=== PATIENT | female | born 1990 | race Caucasian/White ===

== ENCOUNTER 2016-07-08 14:58 | Emergency (ER) | payer BC ==
[~2016-07-08] VITALS: Ht 149.9 cm; Wt 63.5 kg
[~2016-07-08 14:58] MED LIST: FIORICET PO; IBUP800T25 PO
[2016-07-08 15:13] VITALS: Ht 149.9 cm; Wt 63.5 kg
[2016-07-08] MEDS ORDERED: LIDOCAINE/MYLANTA 40 ML BTL PO STA (16:42)
[2016-07-08] MEDS ORDERED: morphine 4 MG/ML VIAL IV STA (16:42)
[2016-07-08] MEDS ORDERED: ONDANSETRON 4 MG INJ IV STA (16:42)
[2016-07-08] MEDS ORDERED: FAMOTIDINE 20 MG INJ IV STA (16:42)
[2016-07-08] MEDS ORDERED: LIDOCAINE/MYLANTA 40 ML BTL PO ONE (17:00)
[2016-07-08] MEDS ORDERED: HYDROCODONE/APAP (5/325) TAB PO ONE (17:00)
[2016-07-08] MEDS ORDERED: METO10TA92 PO (17:18)
[2016-07-08] MEDS ORDERED: TRAM50TA2 PO (17:18)
--- NOTE | 2016-07-08 17:21 | ERD ---
ER Documentation Chief Complaint Date/Time DATE: 07/08/16 TIME: 17:19 Chief Complaint ABDOMINAL PAIN X 5 MONTHS GOT WORSE TODAY HPI This 26-year-old female presents with intermittent progressive epigastric abdominal pain for last 5 months. She was seen over one week ago at another hospital and diagnosed with GERD. She was prescribed Nexium. Patient was also advised to lose weight shows started doing sit ups at home. She is been having worsening epigastric abdominal pain over the last 3 days despite Nexium. She denies fevers, vomiting, blood, diarrhea, urinary complaints. She gives a history of having a normal ultrasound and normal labs. She is advised to see gastroenterology and has an appointment next month. ROS All systems reviewed and are negative except as per history of present illness. Medications Home Meds Active Scripts Metoclopramide* (Reglan*) 10 Mg Tablet, 10 MG PO Q6 Y for NAUSEA AND/OR VOMITING , #30 TAB Prov:CASS HUERTA MD 07/08/16 Tramadol HCl (Tramadol HCl) 50 Mg Tablet, 50 MG PO Q4 Y for PAIN, #20 TAB Prov:CASS HUERTA MD 07/08/16 Acetamin/Butalbital/Caffeine* (Fioricet*) 1 Tab Tab, 1 TAB PO Q4H Y for PAIN LEVEL 1-5, #10 TAB Prov:KARYNA HERRON PA-C 09/26/15 Ibuprofen* (Motrin*) 800 Mg Tab, 800 MG PO Q6 Y for PAIN, #10 TAB Prov:SHALINI MCGEE NP 12/31/14 Allergies Allergies: Coded Allergies: No Known Drug Allergies (Verified Allergy, Mild, 09/26/15) PMhx/Soc Medical and Surgical Hx: pt denies Medical Hx History of Surgery: Yes (c section x2) Anesthesia Reaction: No Hx Neurological Disorder: No Hx Respiratory Disorders: No Hx Cardiac Disorders: No Hx Psychiatric Problems: No Hx Miscellaneous Medical Probl: No Hx Alcohol Use: Yes (OCASSIONAL ) Hx Substance Use: No Hx Tobacco Use: No Physical Exam Vitals Vital Signs Date Time Temp Pulse Resp B/P Pulse Ox O2 Delivery O2 Flow Rate FiO2 07/08/16 15:13 98.7 69 20 11/57 100 Physical Exam Const: [] Alert, [id number]. Head: Atraumatic Eyes: Normal Conjunctiva ENT: Normal External Ears, Nose and Mouth. Neck: Full range of motion..~ No meningismus. Resp: Clear to auscultation bilaterally Cardio: Regular rate and rhythm, no murmurs Abd: Soft, mild epigastric tenderness without Drummond sign no tenderness at McBurney's point no rebound., non distended. Normal bowel sounds Skin: No petechiae or rashes Back: No midline or flank tenderness Ext: No cyanosis, or edema Neur: Awake and alert Psych: Normal Mood and Affect Results 24 hrs Current Medications Medications (Trade) Dose Ordered Sig/Derrick Route PRN Reason Start Time Stop Time Status Last Admin Dose Admin Morphine Sulfate (morphine) 4 mg ONCE STAT IV 07/08/16 16:42 07/08/16 16:57 DC Ondansetron HCl (Zofran Inj) 4 mg ONCE STAT IV 07/08/16 16:42 07/08/16 16:57 DC Famotidine (Pepcid Iv) 20 mg ONCE STAT IV 07/08/16 16:42 07/08/16 16:57 DC Miscellaneous Medication (Gi Cocktail (2)) 40 ml ONCE STAT PO 07/08/16 16:42 07/08/16 16:57 DC Acetaminophen/ Hydrocodone Bitart (Hiram (5/325)) 1 tab ONCE ONCE PO 07/08/16 17:00 07/08/16 17:01 DC 07/08/16 17:02 Miscellaneous Medication (Gi Cocktail (2)) 40 ml ONCE ONCE PO 07/08/16 17:00 07/08/16 17:01 DC 07/08/16 17:02 Procedures/MDM Patient presents with epigastric abdominal pain despite Nexium. She does have some history of pain which is worsened by exercising suggesting possible abdominal wall strain. IV and labs were ordered but patient declined and just wanted p.o. meds for pain she feels it is just her GERD and she will continue follow-up as advised. Patient declines any IV fluids, labs or additional studies. Patient was given Hiram 5 mg by mouth and a GI cocktail. Patient will be discharged home with the addition of Reglan and tramadol with instructions to continue Nexium. Patient is advised to follow-up with gastroenterology as scheduled otherwise return for fevers, vomiting, blood, new worsening symptoms. Signs or symptoms do not currently suggest appendicitis, obstruction, acute abdomen, additional causes of acute abdominal pain. Departure Diagnosis: Primary Impression: GERD with apnea Additional Impression: Abdominal pain Abdominal location: epigastric Qualified Code: R10.13 - Epigastric pain Condition: Stable Patient Instructions: Abdominal Pain, Gerd (Adult) Additional Instructions: Continue Nexium and scheduled follow-up with gastroenterology. Recheck for fevers, vomiting, blood, new worsening symptoms. CASS HUERTA MD Jul 08, 2016 17:21
[2016-07-08 17:53] VITALS: BP 121/68; PULSE 134
== END 2016-07-08 17:54 | disposition home or self-care (01) ==
LOC: FTE 14:58
DX: K21.9 Gastro-esophageal reflux disease without esophagitis (principal); R06.81 Apnea, not elsewhere classified
CPT/HCPCS: 99284; J2270; J2405; Z7610

== ENCOUNTER 2018-02-19 20:52 | Emergency (ER) | END 2018-02-19 23:10 | disposition home or self-care (01) ==

== ENCOUNTER 2018-03-06 14:31 | Emergency (ER) | END 2018-03-06 15:21 | disposition home or self-care (01) ==